=== PATIENT | male | born 1995 | race Caucasian/White ===

== ENCOUNTER 2017-01-21 09:52 | Emergency (ER) | payer OTHER ==
[~2017-01-21] VITALS: Ht 175.3 cm; Wt 79.4 kg
[2017-01-21] MEDS ORDERED: PRED10TA PO (10:09)
[2017-01-21] MEDS ORDERED: NORCO, ANEXSIA 5/325MG TABLET (HYDROcodone/ACETAMINOPHEN) PO ONE (10:30)
--- NOTE | 2017-01-21 11:12 | REP ---
Clinical: Trauma. Technique: AP, lateral, bilateral oblique and sunrise views left knee. Findings: The osseous structures and joint spaces are intact and normal. There is no evidence for acute fracture or dislocation. No joint effusion is appreciated. Surrounding soft tissues are unremarkable. No subcutaneous emphysema or radiodense foreign body. Impression: Normal examination. No acute fracture or dislocation. Signed by Tony Jones MD 01/21/2017 11:03 A
[2017-01-21] MEDS ORDERED: NORCOTAB PO (11:22)
[2017-01-21] MEDS ORDERED: MOBI7.5T10 PO (11:22)
[2017-01-21 11:41] VITALS: BP 147/107
== END 2017-01-21 11:45 | disposition home or self-care (01) ==
LOC: M ED 10:36
DX: S83.92XA Sprain of unspecified site of left knee, initial encounter (principal); W00.0XXA Fall on same level due to ice and snow, initial encounter; Y92.89 Other specified places as the place of occurrence of the external cause; Y93.01 Activity, walking, marching and hiking; Y99.0 Civilian activity done for income or pay

== ENCOUNTER 2017-08-20 14:40 | Emergency (ER) | payer OTHER ==
[~2017-08-20] VITALS: Ht 175.3 cm; Wt 85.9 kg
[~2017-08-20 14:40] MED LIST: MOBI4TAB PO; NORCOTAB PO; PRED10TA2 PO
[2017-08-20] MEDS ORDERED: LUNE2TAB23 PO (14:47)
[2017-08-20] MEDS ORDERED: ZOLO100T PO (14:47)
[2017-08-20] MEDS ORDERED: HYDR200T3 PO (14:47)
[2017-08-20 17:49] LABS: BASO # 0.1 10^3/uL (0.0-0.2); BASO % 0.8 % (0.0-1.0); EOS % 0.2 % (0.0-3.0); IMMATURE GRANULOCYTE % 0.3 % (0-0); LYMPH # 1.2 10^3/uL (1.5-6.5); LYMPH % 18.9 % (24.0-44.0); MEAN CORPUSCULAR HEMOGLOBIN 33.2 pg (27.0-33.0); MEAN CORPUSCULAR HGB CONC 35.8 g/dl (32.0-36.5); MEAN CORPUSCULAR VOLUME 92.8 fl (80.0-96.0); MONO # 0.5 10^3/uL (0.0-0.8); MONO % 7.9 % (0.0-5.0); NEUTROPHILS # 4.7 10^3/uL (1.8-7.7); NEUTROPHILS % 71.9 % (36.0-66.0); PLATELET COUNT, AUTOMATED 304 10^3/uL (150-450); RED CELL DISTRIBUTION WIDTH 12.5 % (11.5-14.5); WHITE BLOOD COUNT 6.5 10^3/uL (4.0-10.0)
[2017-08-20] MEDS ORDERED: ACETAMINOPHEN 325 MG TAB PO ONE (18:00)
[2017-08-20 18:08] LABS: ALBUMIN 4.3 GM/DL (3.2-5.2); ALBUMIN/GLOBULIN RATIO 1.26 (1.00-1.93); ALKALINE PHOSPHATASE 64 U/L (45-117); ALT/SGPT 49 U/L (12-78); ANION GAP 8 MEQ/L (8-16); AST/SGOT 60 U/L (15-37); BILIRUBIN,TOTAL 0.5 MG/DL (0.2-1.0); BLOOD UREA NITROGEN 12 MG/DL (7-18); CARBON DIOXIDE LEVEL 28 MEQ/L (21-32); CHLORIDE LEVEL 102 MEQ/L (98-107); GLOMERULAR FILTRATION RATE > 60.0 (>60); GLUCOSE, FASTING 103 MG/DL (70-105); SODIUM LEVEL 138 MEQ/L (136-145); TOTAL PROTEIN 7.7 GM/DL (6.4-8.2)
[2017-08-20 18:09] LABS: INR 1.02
[2017-08-20] MEDS ORDERED: ISOVUE-370 76% 100ML VIAL (Q9967) As Ordered ONE (18:42)
[2017-08-20] MEDS ORDERED: TESS100C PO (19:34)
[2017-08-20] MEDS ORDERED: ZOFR4TAB3 PO (19:34)
[2017-08-20] MEDS ORDERED: PROT1TAB2 PO (19:34)
[2017-08-20] MEDS ORDERED: BENZONATATE 100 MG CAP PO ONE (19:45)
[2017-08-20] MEDS ORDERED: PANTOPRAZOLE 40MG TAB (PROTONIX) PO ONE (19:45)
[2017-08-20 19:55] VITALS: BP 161/84
--- NOTE | 2017-08-21 07:45 | REP ---
The lung mosqueda are clear. The cardiac size is normal The sandra, mediastinum, and bony thorax are unremarkable. Impression: Negative PA and lateral chest. Signed by Raffi Crowell MD 08/21/2017 07:36 A
== END 2017-08-20 20:07 | disposition home or self-care (01) ==
LOC: M ED 14:40
DX: K29.21 Alcoholic gastritis with bleeding (principal); Z79.899 Other long term (current) drug therapy; Z88.0 Allergy status to penicillin